=== PATIENT | male | born 1990 | race Caucasian/White ===

== ENCOUNTER 2017-07-04 09:44 | Emergency (ER) | payer SELFPAY ==
[~2017-07-04] VITALS: Wt 65.8 kg
== END 2017-07-04 11:25 | disposition home or self-care (01) ==
LOC: ED 09:44
DX: S01.81XA Laceration without foreign body of other part of head, initial encounter (principal); Z23 Encounter for immunization; F17.200 Nicotine dependence, unspecified, uncomplicated; W22.8XXA Striking against or struck by other objects, initial encounter; Y93.89 Activity, other specified; Y92.9 Unspecified place or not applicable; Y99.9 Unspecified external cause status

== ENCOUNTER 2019-09-06 03:37 | Emergency (ER) | payer SELFPAY ==
[~2019-09-06] VITALS: Ht 175.2 cm; Wt 65.8 kg
[2019-09-06] MEDS ORDERED: CLINDAMYCIN HC300 MG PO (04:25)
== END 2019-09-06 04:38 | disposition home or self-care (01) ==
LOC: ED 03:37
DX: K02.9 Dental caries, unspecified (principal); K04.7 Periapical abscess without sinus